=== PATIENT | male | born 1950 | race Caucasian/White ===

== ENCOUNTER → 2017-10-21 | Outpatient (CLI) | payer MEDICARE, BC ==
[2017-10-21 13:26] VITALS: BP 122/84; PULSE 63; RESP 16
--- NOTE | 2017-10-21 13:45 | P.PAINCN ---
History of Present Illness - Reason for Consult Consult date: 10/21/17 - History of Present Illness This is 66 years old male with a history of severe neck pain, with radiation to the upper extremity associated with severe numbness and tingling sensation and headache, the pain started after he was working on his boat, and he lifted his upper extremity to pull the Robe , then he starts having immediate sharp pain, the pain is constant, increases with any neck movement , intensity of the pain 9 /10, preventing him from sleep, associated with severe numbness, and currently associated with severe headache, having started from the base of the skull to the top, currently he is on Ultram 50 mg every 6 hours which is not controlling his pain, also patient complaining of chronic low back pain, and he had multiple lumbar spine surgery, and he continued to have low back pain with radiation to the posterior aspect of his lower extremity, he denies any fever or night sweats, he denies any motor or sensory deficit Past Medical History Past Medical History: Cancer, Hypertension History of Any Multi-Drug Resistant Organisms: None Reported Past Surgical History: Back Surgery, Bladder Surgery, Hernia Repair, Orthopedic Surgery Additional Past Surgical History / Comment(s): 3x laminectomy, spinal stimulator implant and removal, r fx hip, bilateral knee arthroscopy, TURP, Past Anesthesia/Blood Transfusion Reactions: Previous Problems w/ Anesthesia Additional Past Anesthesia/Blood Transfusion Reaction / Comm: "problems coming our of anesthesia- 4-5 days, sometimes a week feeling dizzy, unsteady" Past Psychological History: Anxiety, Depression Smoking Status: Former smoker Past Alcohol Use History: Occasional Past Drug Use History: Marijuana Additional Drug Use History / Comment(s): last marijuana 10/20/17 Medications and Allergies Home Medications Medication Instructions Recorded Confirmed Type ALPRAZolam [Xanax] 1 tab PO BID PRN 10/21/17 10/21/17 History Enalapril/Hydrochlorothiazide 1 tab PO DAILY 10/21/17 10/21/17 History [Vaseretic 5-12.5 mg] Multivitamin [Men's Multi-Vitamin] 1 tab PO DAILY 10/21/17 10/21/17 History Omeprazole 20 mg PO DAILY 10/21/17 10/21/17 History Pravastatin Sodium [Pravachol] 10 mg PO DAILY 10/21/17 10/21/17 History traMADol HCL [Ultram] 50 mg PO BID PRN 10/21/17 10/21/17 History Allergies Allergy/AdvReac Type Severity Reaction Status Date / Time No Known Allergies Allergy Verified 10/21/17 12:32 Physical Exam Vitals: Vital Signs Pulse Resp BP Pulse Ox 10/21/17 12:41 63 16 122/84 98 Intake and Output 10/20/17 10/21/17 10/21/17 22:59 06:59 14:59 Other: Weight 79.832 kg Social history : not smoker , NO ETOH , use marijuana. Review of Systems : 1- Constitutional : no chills , no fever , no night sweats , 2- Ears : no ear discharge , no change in hearing 3-Nose, Mouth ,Throat ; no bleeding gums, no sore throat , no epistaxis , 4-Cardiovascular : Denies chest pain, , no orthopnea , no palpitation 5-Respiratory : Denies cough , no dyspnea , no hemoptysis 6-Gastrointestinal :, no change in bowel habits , no coffee- ground emesis . 7-Genitourinary : No hematuria , no discharge , no incontinence, 8-Musculoskeletal : No gait dysfunction , report low back pain , 9- Neurological : no ataxia , no tremor , no sezure , 10-Psychatric , no suicidal ideation no hallucination 11- Endocrine : no cold intolerence , no polyuria , no polydypsia , 12-Hematologic : no easy bleeding , no easy brusing , 13-Allergic / immunology : no angioedema , no wheezing ,no allergic rhinitis 14-Integumentary : no brttle nails , no change hair / nails , no foot/leg ulcers . Physical Examinations : 1-Constitutional : Cooperative , not in acute distress . 2-HEENT : nech ; supple , no Lymphadenopathy , no Thyromegaly , :eyes , no icterus, no photophobia . ENT : , normal oropharynx , no Thrush 3- Respiratory : Chest clear to auscultations Bilaterally , no wheezing . 4- Cardiovascular : regular rate and rhythem , S1 , S2 , no S3 , no S4. 5- Gastrointestinal: abdomen soft no tenderness , no organomegally . 6- Genitourinary : Defferred . 7-Integumentary : No cellulitis , no ulcers , normal skin turgor , no cyanotic . 8- neurologic : Cranial nerve II to XII intact , no focal neurological deffecit 9-psychatric : alert , oriented X 3 , appropriate affect , intact judgment and insight . 10-Lymphatic : no Lymphadenopathy. 11- musculoskeltal: normal gait Cervical Spine motor stregnth in the deltoid and biceps, normal right side , normal Left side motor stregnth biceps and the wrist extensors normal right side ,normal left side . motor stregnth in the triceps muscle . normal Right side , normal Left side deep tendon reflexes normal at the biceps , normal at Brachioradialis , normal at triceps. positive cervical facet loading test . Positive multiple trigger points in the cervical paravertebral muscles and trapezius muscles and rhomboid muscles Lumber spine moter stegnth lower extremities ,thigh and legs 5/5 Right side , 5/5 Left side deep tendon reflexes : normal Knee Jerk , normal ankle Jerk positive lumber facet Loading Test Range of motion of the lumbar spine decreased strait leg raising test negative bilaterally Fabere test negative bilaterally Results Comments: MRI of the cervical spine= C5 6 C6 7 disc protrusion, and facet hypertrophy Assessment and Plan Plan: Assessment and plan= 1-acute cervical radiculopathy 2-cervical disc herniation. 3-myofascial pain syndrome cervical area. Patient will be good candidate for cervical epidural steroid injections under fluoroscopy guidance, and also does intend patient could benefit from trigger point injections cervical paravertebral muscles, trapezius muscles, and rhomboid muscles Also patient could benefit from muscle relaxant Flexeril 5 mg twice a day, and Mobic 7.5 mg twice a day Time with Patient: Greater than 30 PQRS Measure Charge Sheet Measure #130: Documentation of Current Meds in Medical Chart: Patient's medications documented in chart Measure #226: Tobacco Use: Screen & Cessation Intervention: Pt not a tobacco user Measure #111: Pneumonia Vaccination: Pneumococcal vaccine NOT administered or previously given Measure #47: Advance Care Plan: Advance care planning discussed & documented, pt chose/unable to give Measure #412: Opioid Treatment Agreement: No documentation of signed opioid treatment agreement Measure #408: Opioid Therapy Follow-up Evaluation: Patient had NO f/u eval minimum every 3 months during opioid therapy Measure #317: Preventitive Care & Scrn High Bld Press & F/U: Normal blood pressure, f/u not required Measure #128: Body Mass Index (BMI) Screening & Follow-up: BMI documented within normal parameters Measure #131: Pain Assessment & Follow-up: Pain positive & plan documented, Follow-up scheduled Measure #431: Unhealthy Alcohol Use Preventative Care & Scrn: Patient not identified as an unhealthy alcohol user PQRS Narrative: Smoking Status Former smoker Do You Want the Pneumonia No Vaccine AT THIS TIME? Blood Pressure 122/84 Pain Intensity [Bilateral 5 Upper Neck] Scale Used Numeric (1 - 10) Hx Alcohol Use (MH) Yes: 2 q day Home Medications: Ambulatory Orders ALPRAZolam [Xanax] 1 tab PO BID PRN 10/21/17 Enalapril/Hydrochlorothiazide [Vaseretic 5-12.5 mg] 1 tab PO DAILY 10/21/17 Multivitamin [Men's Multi-Vitamin] 1 tab PO DAILY 10/21/17 Omeprazole 20 mg PO DAILY 10/21/17 Pravastatin Sodium [Pravachol] 10 mg PO DAILY 10/21/17 traMADol HCL [Ultram] 50 mg PO BID PRN 10/21/17
== END | disposition home or self-care (01) ==
LOC: PNWHC3 11:53
PROVIDERS: ATTEND Specialist
DX: M50.10 Cervical disc disorder with radiculopathy, unspecified cervical region (principal); M79.1 Myalgia; I10 Essential (primary) hypertension; F41.9 Anxiety disorder, unspecified; F32.9 Major depressive disorder, single episode, unspecified; Z87.891 Personal history of nicotine dependence; Z79.899 Other long term (current) drug therapy; Z98.890 Other specified postprocedural states
CPT/HCPCS: 99201

== ENCOUNTER 2017-10-25 06:51 | Day surgery (SDC) | payer MEDICARE, BC ==
[2017-10-21 16:12] VITALS: BMI 23.8
[~2017-10-25 06:51] MED LIST: LACTATED RINGERS 1,000 ML IV SCH
[2017-10-25 07:12] VITALS: RESP 16; TEMP 97.6
[2017-10-25] MEDS ORDERED: LIDOCAINE 1% 20 ML VIAL (10MG/ML) FOR IV START INTRADERMA ONE (07:13)
--- NOTE | 2017-10-25 07:44 | P.PCN ---
Date of Procedure: 10/25/17 Procedure(s) Performed: . PROCEDURE 1. Cervical epidural steroid injection under fluoroscopic guidance, C7-T1 2. Cervical epidurogram. 3. Trigger point injections cervical paravertebral muscles total of 4 trigger points injected,(2 on the right side trapezius and rhomboid muscles ,and 2 on the left side trapezius and rhomboid muscles ) PREOPERATIVE DIAGNOSIS: 1- Cervical Herniated Disc Diseases 2- Cervical radiculopathy., 3-myofascial pain syndrome and cervical area POSTOPERATIVE DIAGNOSIS: : Same as preoperative diagnoses ANESTHESIA: Local anesthesia with 1% lidocaine 3 ml , and IV sedation with Versed 2 mg . EBL 0 PROCEDURE INDICATION: The patient with neck pain and radiculitis unresponsive to conservative treatment consents for procedure. PROCEDURE DESCRIPTION / TECHNIQUE: The patient was seen and identified in the preoperative area. Risks, benefits, complications, including but not limited to infections ,bleeding , allergic reactions to the medications ,and not complete pain releife, and alternatives were discussed with the patient, the patient agreed to proceed with the procedure and signed the consent. Patient was taken to the OR and time out was completed. The patient was placed in the prone position on the procedure table. A pillow was placed under the patients chest to increase the cervical interlaminar space. The cervical area was prepped and draped in the usual sterile fashion. Vital signs were closely monitored during the procedure. Conscious sedation was used during the procedure to decrease patients anxiety. Using anterior-posterior fluoroscopy, the C7-T1 interlaminar space was identified and the skin over this site was marked and then infiltrated with 1% lidocaine subcutaneously. Subsequently, a 20-gauge 3-1/2-inch Tuohy epidural needle was inserted and advanced toward the epidural space by means of the `` hanging-drop technique and guided by AP and lateral fluoroscopy. The correct needle position in the epidural space was verified with the injection of 2 mL of the water soluble contrast dye Isovue-200 and observing an excellent epidurogram with the epidural spread of the dye, after negative aspiration for blood and CSF and in the absence of paresthesias. Again after negative aspiration, mixture containing 20 mg Dexamethasone and 2 ml of preservative- free normal saline injected and a washout of epidurogram was seen. Needle was withdrawn intact. then the trigger points injection done , using 25-gauge needle, each of limited appose the small in the preoperative holding area , total of 4 trigger points identified, the preoperative holding area on the right side trapezius and rhomboid muscle and 2 on the left side trapezius and rhomboid muscle each one of them injected with ropivacaine 0.5%, using 25-gauge needle 2 ml injected at each trigger point, injections and after negative aspiration under was no paresthesia during the injection Complications= none. Disposition= patient was placed in supine position and transferred to the recovery room area in stable condition and there was no evidence of upper or lower extremity motor or sensory deficit after the procedure patient was discharged from recovery room after discharge criteria met and home discharge instructions was given by the staff and patient will follow with the pain clinic in 2-4 weeks
[2017-10-25] MEDS ORDERED: IV FLUID CONTINUATION 1,000 ML IV ONE (07:52)
--- NOTE | 2017-10-25 07:56 | FL ---
EXAMINATION TYPE: FL guided pain mgmt statistic DATE OF EXAM: 10/25/2017 HISTORY: Pain Cervical Epidural. 2 sec fluoro. 1 image scanned.
[2017-10-25 07:58] VITALS: PULSE 102
[2017-10-25 08:10] VITALS: BP 132/92
== END 2017-10-25 08:28 | disposition home or self-care (01) ==
LOC: ORPAIN 06:51
PROVIDERS: ATTEND Anesthesiology
DX: M50.10 Cervical disc disorder with radiculopathy, unspecified cervical region (principal); M79.1 Myalgia; Z79.891 Long term (current) use of opiate analgesic; I10 Essential (primary) hypertension; Z87.891 Personal history of nicotine dependence; F41.9 Anxiety disorder, unspecified; F32.9 Major depressive disorder, single episode, unspecified; Z79.899 Other long term (current) drug therapy
CPT/HCPCS: 20553; 62321; J2250; J1100; Q9966; 20552; 99152

== ENCOUNTER 2017-11-08 09:18 | Day surgery (SDC) | payer MEDICARE, BC ==
[2017-11-02 14:52] VITALS: BMI 24.4
[2017-11-08 10:48] VITALS: TEMP 98.5
[2017-11-08] MEDS ORDERED: LIDOCAINE 1% 20 ML VIAL (10MG/ML) FOR IV START INTRADERMA ONE (11:05)
--- NOTE | 2017-11-08 11:36 | P.PCN ---
Date of Procedure: 11/08/17 Surgeon: Tanya Donaldson Pathology: none sent Condition: stable Disposition: PACU Description of Procedure: PROCEDURE 1. Cervical epidural steroid injection under fluoroscopic guidance, C7-T1 right paramedian approach. 2. Cervical epidurogram. : PREOPERATIVE DIAGNOSIS: Cervical radiculopathy, cervical spondylosis without myelopathy POSTOPERATIVE DIAGNOSIS: : Same as above ANESTHESIA: Local anesthesia with 1% lidocaine and IV moderate conscious sedation with Versed and Fentanyl . EBL negligible PROCEDURE INDICATION: The patient with neck pain and radiculopathy unresponsive to conservative treatment consents for procedure. PROCEDURE DESCRIPTION / TECHNIQUE: The patient was seen and identified in the preoperative area. Risks, benefits, complications, including but not limited to infections ,bleeding , allergic reactions to the medications ,and not complete pain relief, and alternatives were discussed with the patient, the patient agreed to proceed with the procedure and signed the consent. Patient was taken to the OR and time out was completed. The patient was placed in the prone position on the procedure table. A pillow was placed under the patients chest to increase the flexion of the cervical spine . The cervical area was prepped and draped in the usual sterile fashion. Vital signs were closely monitored during the procedure. Conscious sedation was used during the procedure to decrease patients anxiety. Using anterior-posterior fluoroscopy, the C7-T1 interlaminar space was identified and the skin over this site was marked and then infiltrated with 1% lidocaine subcutaneously. Subsequently, a 20-gauge 3-1/2-inch Tuohy epidural needle was inserted and advanced toward the epidural space by means of loss of resistance to air technique and guided by AP and lateral fluoroscopy. The needle tip contacted the lamina of T1 vertebra first, then it was walked off the bone and into the epidural space using the loss of to air and fluoroscopic guidance to identify the epidural space. The correct needle position in the epidural space was verified with the injection of 1 mL of the water soluble contrast dye Isovue and observing an excellent epidurogram with the epidural spread of the dye, after negative aspiration for blood and CSF and in the absence of paresthesias. Again after negative aspiration, a 5 ml mixture containing 10 mg of Decadron and 4 ml of preservative free Normal Saline solution was injected and a washout of epidurogram was seen. Needle was withdrawn intact, skin was cleansed, and bandages were applied.
[2017-11-08 11:43] VITALS: RESP 16
--- NOTE | 2017-11-08 11:51 | FL ---
EXAMINATION TYPE: FL guided pain mgmt statistic DATE OF EXAM: 11/08/2017 HISTORY: Pain 6 seconds of fluoro time. 1 image scanned. Mendoza.
[2017-11-08] MEDS ORDERED: IV FLUID CONTINUATION 1,000 ML IV ONE (12:04)
[2017-11-08 12:08] VITALS: BP 156/91; PULSE 105
== END 2017-11-08 12:10 | disposition home or self-care (01) ==
LOC: ORPAIN 09:18
PROVIDERS: ATTEND Anesthesiology
DX: M47.22 Other spondylosis with radiculopathy, cervical region (principal); M50.122 Cervical disc disorder at C5-C6 level with radiculopathy; M79.1 Myalgia; I10 Essential (primary) hypertension; F41.9 Anxiety disorder, unspecified; F32.9 Major depressive disorder, single episode, unspecified; M54.5 Low back pain; G89.29 Other chronic pain; Z79.899 Other long term (current) drug therapy; Z85.9 Personal history of malignant neoplasm, unspecified; Z87.891 Personal history of nicotine dependence
CPT/HCPCS: 62321; J1100; J3010; Q9966; 99152

== ENCOUNTER → 2017-11-29 | Outpatient (CLI) | payer MEDICARE, BC ==
[2017-11-29 12:26] VITALS: BP 121/92; PULSE 111; RESP 16
--- NOTE | 2017-11-29 13:21 | P.PAINPG ---
Subjective Progress Note Date: 11/29/17 This is a follow-up visit for this 66 is on male with history of severe neck pain with radiation to the upper extremity associated with numbness and tingling sensation, is diagnosed with cervical radiculopathy cervical disc herniation and myofascial pain syndrome cervical area, we have done cervical epidural steroid injections 2, and patient reports he has some benefit from it but he continued to have some numbness and tingling sensation in the upper extremity he denies any motor or sensory deficit, intensity of the pain is still feeling with his quality of life and ability to do activities of daily living, he denies any fever or night sweats. Denies any change in the bowel movements or urination. Objective - Vital Signs Vital signs: Vital Signs Temp Pulse 111 H 11/29/17 12:08 Resp 16 11/29/17 12:08 BP 121/92 11/29/17 12:08 Pulse Ox 94 L 11/29/17 12:08 Intake & Output 11/28/17 11/29/17 11/29/17 18:59 06:59 18:59 Weight 80.739 kg - Exam Physical Examinations : 1-Constitutiona : Cooperative , not in acute distress . 2-HEENT : nech ; supple , no Lymphadenopathy , normal thyroid size . eyes : no ptosis , no icterus, no photophobia . ENT : normal of hearing , normal oropharynx , no Thrush . 3- Respiratory : Chest clear to auscultations Bilaterally , no wheezing , no Rhonchi . 4- Cardiovascular : regular rate and rhythem , S1 , S2 , no S3 , no S4. 5- Gastrointestinal : abdomen soft no tenderness , bowel sounds , no organomegally . 6- Genitourinary : Defferred . 7- neurologic : Cranial nerve II to XII intact , no focal neurological deffecit . 8-psychatric : alert , oriented X 3 , appropriate affect , intact judgment and insight . 9-Lymphatic : no Lymphadenopathy . 10- musculoskeltal : Cervical Spine motor stregnth in the deltoid and biceps, normal right side , normal Left side motor stregnth biceps and the wrist extensors normal right side ,normal left side . motor stregnth in the triceps muscle . normal Right side , normal Left side deep tendon reflexes normal at the biceps , normal at Brachioradialis , normal at triceps. multiples trigger points in the cervical paravertebral muscles and rhomboid and trapezius muscles Lumber spine moter stegnth lower extremities , thigh and legs 5/5 Right side , 5/5 Left side deep tendon reflexes : normal Knee Jerk , normal ankle Jerk positive lumber facet Loading Test Range of motion of the lumbar spine Flexion 30 degrees, extension 10 degrees strait leg raising test , positive at 30 degree on the left and its negative on the right side Fabere test positive RT and positive LT . Assessment and Plan Plan: Assessment and plan= cervical radiculopathy, cervical disc herniation, myofascial pain syndrome and cervical area. He will be, scheduled to have third cervical epidural steroid injections under fluoroscopy guidance at C7-T1 At the same time we will do trigger point injection cervical area Recommend start patient on Lyrica 25 mg 3 times a day, continue Flexeril 10 mg 3 times a day, continue Mobic 7.5 mg daily Lumbar radiculopathy , lumbar spondylosis with lumbar facet arthropathy , FBSS lumbar area he had MRI of the lumbar spine ordered to be done next week and next visit we'll evaluate his need to do an interventional pain procedure in the lumbar area Time with Patient: Less than 30 PQRS Measure Charge Sheet Measure #130: Documentation of Current Meds in Medical Chart: Patient's medications documented in chart Measure #226: Tobacco Use: Screen & Cessation Intervention: Pt screened for tobacco use AND intervention given Measure #111: Pneumonia Vaccination: Pneumococcal vaccine NOT administered or previously given Measure #47: Advance Care Plan: Advance care planning discussed & documented, pt chose/unable to give Measure #412: Opioid Treatment Agreement: No documentation of signed opioid treatment agreement Measure #408: Opioid Therapy Follow-up Evaluation: Patient had NO f/u eval minimum every 3 months during opioid therapy Measure #317: Preventitive Care & Scrn High Bld Press & F/U: Normal blood pressure, f/u not required Measure #128: Body Mass Index (BMI) Screening & Follow-up: BMI documented within normal parameters Measure #131: Pain Assessment & Follow-up: Pain positive & plan documented, Follow-up scheduled Measure #431: Unhealthy Alcohol Use Preventative Care & Scrn: Patient not identified as an unhealthy alcohol user PQRS Narrative: Smoking Status Former smoker Do You Want the Pneumonia No Vaccine AT THIS TIME? Blood Pressure 121/92 Pain Intensity [Bilateral 9 Posterior Neck] Scale Used Numeric (1 - 10) Hx Alcohol Use (MH) Yes: 2 q day Home Medications: Ambulatory Orders ALPRAZolam [Xanax] 1 tab PO BID PRN 10/21/17 Cyclobenzaprine [Flexeril] 10 mg PO TID PRN 10/21/17 Enalapril/Hydrochlorothiazide [Vaseretic 5-12.5 mg] 1 tab PO DAILY 10/21/17 Multivitamin [Men's Multi-Vitamin] 1 tab PO DAILY 10/21/17 Omeprazole 20 mg PO DAILY 10/21/17 Pravastatin Sodium [Pravachol] 10 mg PO DAILY 10/21/17 traMADol HCL [Ultram] 50 mg PO BID PRN 10/21/17 Controlled Substance Measures - Controlled Substance Measures Is patient prescribed a controlled substance at discharge?: No When asked, does pt state using other controlled substances?: No If prescribed controlled substance>3 days was MAPS reviewed?: No If Rx opioid, was Start Talking consent form obtained?: No If opioid is for acute pain is fill amount 7 days or less?: No Was information provided regarding opioid addiction?: No
== END ==
LOC: PNWHC3 11:35
PROVIDERS: ATTEND Specialist
DX: M50.10 Cervical disc disorder with radiculopathy, unspecified cervical region (principal); M79.18 Myalgia, other site
CPT/HCPCS: 99211

== ENCOUNTER 2017-12-07 08:49 | Day surgery (SDC) | payer MEDICARE, BC ==
[2017-12-03 10:44] VITALS: BMI 24.4
[2017-12-07] MEDS ORDERED: LIDOCAINE 1% 20 ML VIAL (10MG/ML) FOR IV START INTRADERMA ONE (09:11)
[2017-12-07 09:20] VITALS: RESP 16; TEMP 97.4
--- NOTE | 2017-12-07 10:26 | P.PCN ---
Date of Procedure: 12/07/17 Procedure(s) Performed: PROCEDURE 1. Cervical epidural steroid injection under fluoroscopic guidance, C7-T1 2. Cervical epidurogram. 3. Trigger point injections cervical paravertebral muscles total of 5 trigger points injected,(3 on the right side trapezius and rhomboid muscles ,and 2 on the left side trapezius and rhomboid muscles ) PREOPERATIVE DIAGNOSIS: 1- Cervical Herniated Disc Diseases 2- Cervical radiculopathy., 3-myofascial pain syndrome and cervical area POSTOPERATIVE DIAGNOSIS: : Same as preoperative diagnoses ANESTHESIA: Local anesthesia with 1% lidocaine 3 ml , and IV sedation with Versed 1 mg ,and Fentanyle 50 mcg . EBL 0 PROCEDURE INDICATION: The patient with neck pain and radiculitis unresponsive to conservative treatment consents for procedure. PROCEDURE DESCRIPTION / TECHNIQUE: The patient was seen and identified in the preoperative area. Risks, benefits, complications, including but not limited to infections ,bleeding , allergic reactions to the medications ,and not complete pain releife, and alternatives were discussed with the patient, the patient agreed to proceed with the procedure and signed the consent. Patient was taken to the OR and time out was completed. The patient was placed in the prone position on the procedure table. A pillow was placed under the patients chest to increase the cervical interlaminar space. The cervical area was prepped and draped in the usual sterile fashion. Vital signs were closely monitored during the procedure. Conscious sedation was used during the procedure to decrease patients anxiety. Using anterior-posterior fluoroscopy, the C7-T1 interlaminar space was identified and the skin over this site was marked and then infiltrated with 1% lidocaine subcutaneously. Subsequently, a 20-gauge 3-1/2-inch Tuohy epidural needle was inserted and advanced toward the epidural space by means of the `` hanging-drop technique and guided by AP and lateral fluoroscopy. The correct needle position in the epidural space was verified with the injection of 2 mL of the water soluble contrast dye Isovue-200 and observing an excellent epidurogram with the epidural spread of the dye, after negative aspiration for blood and CSF and in the absence of paresthesias. Again after negative aspiration, mixture containing 20 mg Dexamethasone and 2 ml of preservative- free normal saline injected and a washout of epidurogram was seen. Needle was withdrawn intact. then the trigger points injection done , using 25-gauge needle, each of limited appose the small in the preoperative holding area , total of 5 trigger points identified, the preoperative holding area , 3 on the right side trapezius and rhomboid muscle, and 2 on the left side trapezius and rhomboid muscle each one of them injected with ropivacaine 0.5%, using 25-gauge needle 2 ml injected at each trigger point, injections and after negative aspiration under was no paresthesia during the injection Complications= none. Disposition= patient was placed in supine position and transferred to the recovery room area in stable condition and there was no evidence of upper or lower extremity motor or sensory deficit after the procedure patient was discharged from recovery room after discharge criteria met and home discharge instructions was given by the staff and patient will follow with the pain clinic in 2-4 weeks
[2017-12-07] MEDS ORDERED: IV FLUID CONTINUATION 550 ML IV ONE (10:30)
--- NOTE | 2017-12-07 10:55 | FL ---
EXAMINATION TYPE: FL guided pain mgmt statistic DATE OF EXAM: 12/07/2017 CLINICAL HISTORY: Neck pain. TECHNIQUE: Fluoroscopy. COMPARISON: None. FINDINGS: Fluoroscopic guidance was provided during pain relief procedure performed by Dr. Bhatt . A total of 2 seconds of fluoroscopic time was utilized during the procedure and single spot fluoro scopic image is acquired. Single image acquired shows needle localization at C7 level with contrast injection. IMPRESSION: As Above.
[2017-12-07 11:04] VITALS: BP 135/92; PULSE 110
== END 2017-12-07 11:08 | disposition home or self-care (01) ==
LOC: ORPAIN 08:49
PROVIDERS: ATTEND Specialist
DX: M50.10 Cervical disc disorder with radiculopathy, unspecified cervical region (principal); M79.18 Myalgia, other site; I10 Essential (primary) hypertension
CPT/HCPCS: 20553; 62321; J2250; J1100; J3010; Q9966; 99152

== ENCOUNTER → 2019-08-17 | Outpatient (CLI) | payer MEDICARE, BC ==
[2019-08-17 12:57] VITALS: BP 98/70; PULSE 66; RESP 16; TEMP 98.4
--- NOTE | 2019-08-18 12:16 | P.PAINPG ---
Subjective Progress Note Date: 08/17/19 This is a follow-up visit for this 68-year-old male with history of severe neck pain with radiation to the upper extremity associated with numbness and tingling sensation, is diagnosed with cervical radiculopathy cervical disc herniation and myofascial pain syndrome cervical area, we have done cervical epidural steroid injections and trigger point injections, last done in 11/2017. Today, he presents with low back pain which has been present for over 20 years, located in bilateral lower back, left greater than right, radiating to bilateral lower extremities, worse on the right side. Pain in the right lower extremity is in the posterior thigh, lateral aspect of calf and medial 3 toes. In the left lower extremity is in the entire leg below the knee. He does have associated numbness and tingling in bilateral lower extremities and subjective weakness on right side. He does endorse a few episodes of bowel incontinence, where he has been unable to get to the toilet in time. He has had chronic pain for a long time, however in October 2018, he was brushing his teeth and had a coughing spell and subsequently he had severe back pain. He had another similar episode approximately 2 weeks ago where he was vomiting due to morphine and his back pain worsens. Of note, he has been evaluated in [place] for his low back pain and underwent some injections, he also had a spinal cord stimulator in place, however this was removed in 2007 as it did not work. He has undergone lumbar spinal surgery as well, he was evaluated by a spine surgeon in [place] who recommended decompression and fusion, however he did not want to proceed with this. Review of systems is negative for chest pain, shortness of breath, changes in vision, changes in hearing, new onset weakness, abdominal pain, diarrhea, extreme fatigue, malaise, fever, skin changes, homicidal ideation, or bladder incontinence. He has had suicidal thoughts, does not have an active plan. Objective Physical exam: Vitals: Reviewed in EMR GENERAL: Well appearing, in no acute distress PSYCH: Tearful, crying during our visit SKIN: Skin color, texture, turgor normal, no rashes or lesions HEENT: Normocephalic, atraumatic. EOM intact CV: No pedal edema RESP: Respirations are unlabored, no audible wheezing GI: Abdomen non-distended MUSCULOSKELETAL: Bilateral lower extremity strength is normal and symmetric. No atrophy or tone abnormalities are noted. Lumbar spine: Straight leg raising in the sitting position is positive bilaterally for radicular pain. Tenderness to palpation over the lumbar spine and paraspinous muscles bilaterally. Positive for pain with facet loading and back extension/rotation. Limited lumbar flexion and extension. Midline Scar from prior lumbar surgery visible, well healed. Buttocks: No pain to palpation over the PSIS, sacroiliac joint maneuvers are n egative for pain. Extremities: Peripheral joint ROM is full and pain free without obvious instability or laxity in all four extremities. No edema or skin discolorations noted. NEUR: Bilateral lower extremity coordination and muscle stretch reflexes are physiologic and symmetric. Negative clonus bilaterally. Reduced sensation to light touch noted in lateral aspect of right leg Imaging: MRI lumbar spine done on 05/30/2019 at [facility] shows moderate disc space narrowing with spondylolisthesis at all levels of the lumbar spine. Grade 1 subluxation of L5 on S1 and L2 on L3 and L3 on L4. Multilevel disc bulging. At L12 moderate right neuroforaminal narrowing, mild left neuroforaminal narrowing. At L2-3 disc bulge with moderate bilateral neuroforaminal narrowing. At L3-4 large left paracentral disc bulge with severe left neuroforaminal narrowing and moderate right neuroforaminal narrowing. At L4-5 posterior central disc herniation with severe left neuroforaminal narrowing and moderate right neuroforaminal narrowing stop L5-S1 broad-based disc bulge with mild bilateral neuroforaminal narrowing. CT lumbar spine done at [facility] on 10/26/2018 shows multilevel spondylolisthesis and multilevel degenerative change with new disc herniation at L4-5left paracentral Assessment and Plan Plan: Assessment and plan= Lumbar radiculopathy , lumbar spondylosis with lumbar facet arthropathy , FBSS lumbar area, lumbar degenerative disc disease We will schedule him for a caudal epidural steroid injections lysis of adhesions at earliest available I instructed him to follow his primary care physician regarding discussion, he has described Zoloft, and is not taking this medication. I instructed him to start taking it. cervical radiculopathy, cervical disc herniation, myofascial pain syndrome and cervical area: In the past he has undergone cervical epidural steroid injections and trigger point injection cervical area Follow-up: For above-mentioned procedure at earliest available Objective - Vital Signs Vital signs: Intake & Output 06/17/20 06/18/20 06/18/20 18:59 06:59 18:59 Weight 77.111 kg PQRS Measure Charge Sheet Measure #130: Documentation of Current Meds in Medical Chart: Patient's medications documented in chart Measure #226: Tobacco Use: Screen & Cessation Intervention: Pt not a tobacco u ser Measure #111: Pneumonia Vaccination: Pneumococcal vaccine NOT administered or previously given Measure #47: Advance Care Plan: Advance care planning discussed & documented, pt chose/unable to give Measure #412: Opioid Treatment Agreement: No documentation of signed opioid treatment agreement Measure #408: Opioid Therapy Follow-up Evaluation: Patient had NO f/u eval minimum every 3 months during opioid therapy Measure #317: Preventitive Care & Scrn High Bld Press & F/U: Normal blood pressure, f/u not required Measure #128: Body Mass Index (BMI) Screening & Follow-up: BMI documented within normal parameters Measure #131: Pain Assessment & Follow-up: Pain positive & plan documented, Follow-up scheduled Measure #431: Unhealthy Alcohol Use Preventative Care & Scrn: Patient not identified as an unhealthy alcohol user PQRS Narrative: Smoking Status Former smoker Pain Intensity [Left Lower 6 Back] Hx Alcohol Use (MH) Yes Home Medications: Ambulatory Orders ALPRAZolam [Xanax] 0.5 tab PO BID PRN 10/21/17 Enalapril/Hydrochlorothiazide [Vaseretic 5-12.5 mg] 1 tab PO DAILY 10/21/17 Omeprazole 20 mg PO DAILY 10/21/17 HYDROcodone/APAP 7.5-325MG [[place] 7.5-325] 1 tab PO Q4-6H PRN 08/17/19 Sertraline [Zoloft] 100 mg PO DAILY 08/17/19 Controlled Substance Measures - Controlled Substance Measures Is patient prescribed a controlled substance at discharge?: No
== END | disposition home or self-care (01) ==
LOC: PNWHC3 12:26
PROVIDERS: ATTEND Anesthesiology
DX: M51.16 Intervertebral disc disorders with radiculopathy, lumbar region (principal); M47.26 Other spondylosis with radiculopathy, lumbar region; M46.96 Unspecified inflammatory spondylopathy, lumbar region; M50.10 Cervical disc disorder with radiculopathy, unspecified cervical region; M79.18 Myalgia, other site; Z87.891 Personal history of nicotine dependence; Z79.899 Other long term (current) drug therapy
CPT/HCPCS: 99211

== ENCOUNTER → 2019-08-29 | Day surgery (SDC) | payer MEDICARE, BC ==
[2019-08-28 10:39] VITALS: BMI 23.7
[~2019-08-29] MED LIST changes: +IOPAMIDOL M200 10 ML VIAL ONE; +LACTATED RINGERS 1,000 ML IV ONE; +LIDOCAINE 1% (10MG/ML) FOR IV START INTRADERMA ONE; +MIDAZOLAM 2 MG/2 ML VIAL ONE; +fentaNYL (PF) 50 MCG/ML 2 ML AMP ONE; +methylPREDNISolone ACETATE 40 MG/ML 1 ML VIAL ONE
[2019-08-29 11:11] VITALS: RESP 18; TEMP 97.8
--- NOTE | 2019-08-29 12:22 | P.PCN ---
Date of Procedure: 08/29/19 Procedure(s) Performed: Procedure= caudal epidural steroid injection with lysis of epidural adhesions under fluoroscopy guidance. Preoperative diagnosis=1-failed back surgery syndrome lumbar area. 2 lumbar degenerative disc disease 3-lumbar radiculopathy Postoperative diagnosis= same Fluoroscopy was used for the procedure and fluoroscopic images were saved to the patient's chart Anesthesia= IV sedation with Versed and fentanyl , and local infiltration with lidocaine 1% 3 mL for skin and subcutaneous tissue infiltrations. Sedation time 13 minutes Description of the procedure= procedure risk and benefits discussed with the patient, including but not limited to risk of infection and bleeding and ALLERGIC reaction to the medication and no complete pain relief, paralysis discussed with the patient and the patient agreed with proceeding. The patient was taken to the operating room, placed in prone position, standard monitors applied, then after induction of anesthesia the lumbar and the caudal Area prepped with chlorhexidine , then under fluoroscopy guidance, local infiltration of the skin and subcutaneous tissue at the caudal hiatus area, then a 17-gauge Touhy needle advanced slowly under fluoroscopy and passed through the cauda hiatus and advanced to the epidural space upto the S3 level. Aspiration revealed no heme, no paresthesia, no cerebrospinal fluid, then Isovue 200 2mls was injected under live fluoroscopy that showed good spread in the epidural space, no intrathecal spread, then a 22 wilfrido Racz catheter was advanced slowly through the needle up to the L4-5 level and I was able to break the scar tissue by advancing and withdrawing the catheter multiple times. Once lysis of adhesion was completed, a mixture of lidocaine 1% 1 mL +5 mL of preservative-free normal saline +80 mg of depomedrol was mixed together , and injected epidurally. Patient tolerated the procedure well without any complication and will follow up with up in the pain clinic in 4 weeks.
[2019-08-29 12:27] VITALS: BP 155/95; PULSE 75
--- NOTE | 2019-08-29 12:50 | FL ---
Fluoroscopy History: Needle placement 9 seconds of fluoroscopic time and 2 films are submitted for Needle placement.
== END ==
LOC: ORPAIN 10:42
PROVIDERS: ATTEND Anesthesiology
DX: M96.1 Postlaminectomy syndrome, not elsewhere classified (principal); M51.16 Intervertebral disc disorders with radiculopathy, lumbar region; Z88.5 Allergy status to narcotic agent
CPT/HCPCS: 62264; J2250; J1030; J3010; Q9966; C1894; 99152

== ENCOUNTER 2019-09-26 08:00 | Day surgery (SDC) | payer MEDICARE, BC ==
[2019-09-22 13:45] VITALS: BMI 23.8
[~2019-09-26 08:00] MED LIST changes: -IOPAMIDOL M200 10 ML VIAL ONE; -LACTATED RINGERS 1,000 ML IV ONE; -LIDOCAINE 1% (10MG/ML) FOR IV START INTRADERMA ONE; -MIDAZOLAM 2 MG/2 ML VIAL ONE; -fentaNYL (PF) 50 MCG/ML 2 ML AMP ONE; -methylPREDNISolone ACETATE 40 MG/ML 1 ML VIAL ONE
[2019-09-26 08:17] VITALS: TEMP 97.7
[2019-09-26] MEDS ORDERED: MIDAZOLAM 2 MG/2 ML VIAL ONE (08:34)
[2019-09-26] MEDS ORDERED: methylPREDNISolone ACETATE 80 MG/ML 1 ML VIAL ONE (08:34)
[2019-09-26] MEDS ORDERED: IOPAMIDOL M200 10 ML VIAL ONE (08:34)
[2019-09-26] MEDS ORDERED: fentaNYL (PF) 50 MCG/ML 2 ML AMP ONE (08:34)
[2019-09-26 09:14] VITALS: RESP 16
[2019-09-26 09:39] VITALS: BP 146/92; PULSE 88
[2019-09-26] MEDS ORDERED: IV FLUID CONTINUATION 1,000 ML IV ONE (09:39)
--- NOTE | 2019-09-26 09:49 | P.PCN ---
Date of Procedure: 09/26/19 Procedure(s) Performed: Procedure= caudal epidural steroid injection with lysis of epidural adhesions under fluoroscopy guidance. Preoperative diagnosis=1-failed back surgery syndrome lumbar area. 2 lumbar degenerative disc disease 3-lumbar radiculopathy Postoperative diagnosis= same Fluoroscopy was used for the procedure and fluoroscopic images were saved to the patient's chart Anesthesia= IV sedation with Versed and fentanyl , and local infiltration with lidocaine 1% 3 mL for skin and subcutaneous tissue infiltrations. Sedation time 25 minutes Description of the procedure= procedure risk and benefits discussed with the patient, including but not limited to risk of infection and bleeding and ALLERGIC reaction to the medication and no complete pain relief, paralysis discussed with the patient and the patient agreed with proceeding. The patient was taken to the operating room, placed in prone position, standard monitors applied, then after induction of anesthesia the lumbar and the caudal Area prepped with chlorhexidine , then under fluoroscopy guidance, local infiltration of the skin and subcutaneous tissue at the caudal hiatus area, then a 17-gauge Touhy needle advanced slowly under fluoroscopy and passed through the cauda hiatus and advanced to the epidural space upto the S3 level. Aspiration revealed no heme, no paresthesia, no cerebrospinal fluid, then Isovue 200 2mls was injected under live fluoroscopy that showed good spread in the epidural space, no intrathecal spread, then a 22 wilfrido Racz catheter was advanced slowly through the needle up to the L5 level and I was able to break the scar tissue by advancing and withdrawing the catheter multiple times. Once lysis of adhesion was completed, a mixture of lidocaine 1% 1 mL +5 mL of preservative-free normal saline +80 mg of depomedrol was mixed together , and injected epidurally. Patient tolerated the procedure well without any complication and will follow up with up in the pain clinic in 4 weeks. Initially, I had difficulty entering the caudal epidural space with the 17-gauge Tuouy needle. I was able to enter this space with a 22-gauge Quincke needle without difficulty. I then advanced advanced the Tuouy needle in its place without difficulty.
--- NOTE | 2019-09-26 09:58 | FL ---
Fluoroscopy History: Caudal epidural Caudal epidural, [address] Grant
== END 2019-09-26 09:45 | disposition home or self-care (01) ==
LOC: ORPAIN 08:00
PROVIDERS: ATTEND Anesthesiology
DX: M51.16 Intervertebral disc disorders with radiculopathy, lumbar region (principal); M96.1 Postlaminectomy syndrome, not elsewhere classified; N50.812 Left testicular pain
CPT/HCPCS: 62264; C1894; 99152; 99153

== ENCOUNTER → 2019-10-25 | Outpatient (CLI) | payer MEDICARE, BC ==
[2019-10-25 09:59] VITALS: BP 170/100; PULSE 100; RESP 18
--- NOTE | 2019-10-25 15:09 | P.PAINPG ---
Subjective Progress Note Date: 10/25/19 This is a follow-up visit for this 68-year-old male with history of severe neck pain with radiation to the upper extremity associated with numbness and tingling sensation, is diagnosed with cervical radiculopathy cervical disc herniation and myofascial pain syndrome cervical area, also patient complaining of severe low back pain, and he is the Diagnosed with failed back surgery syndrome and lumbar area , recently we have done a caudal epidural steroid injection with lysis of epidural adhesions , he reported that he had some benefit from the procedure but he continued to have, severe low back pain with radiation to the lower extremity, is able to ambulate on his own. He reported that the pain is a ssociated numbness and tingling in bilateral lower extremities and subjective weakness on right side. Of note, he has been evaluated in [place] for his low back pain and underwent some injections, he also had a spinal cord stimulator in place, however this was removed in 2007 as it did not work. He has undergone lumbar spinal surgery as well, he was evaluated by a spine surgeon in [place] who recommended decompression and fusion, however he did not want to proceed with this. Review of systems is negative for chest pain, shortness of breath, changes in vision, changes in hearing, new onset weakness, abdominal pain, diarrhea, extreme fatigue, malaise, fever, skin changes, homicidal ideation, or bladder incontinence. He has had suicidal thoughts, does not have an active plan Objective - Vital Signs Vital signs: Vital Signs Temp Pulse 100 10/25/19 09:55 Resp 18 10/25/19 09:55 BP 170/100 10/25/19 09:55 Pulse Ox 96 10/25/19 09:55 - Exam Physical Examinations : -Constitutiona : Cooperative , not in acute distress . -HEENT : nech : supple , no Lymphadenopathy , normal thyroid size . : eyes : no ptosis , no icterus, no photophobia . - neurologic : Cranial nerve II to XII intact , no focal neurological deffecit . -psychatric : alert , oriented X 3 , appropriate affect , intact judgment and insight . -Lymphatic : no Lymphadenopathy . - musculoskeltal : Cervical Spine motor stregnth in the deltoid and biceps, normal right side , normal Left side motor stregnth biceps and the wrist extensors normal right side ,normal left side . motor stregnth in the triceps muscle . normal Right side , normal Left side deep tendon reflexes normal at the biceps , normal at Brachioradialis , normal at triceps. cervical facet loading test= Positive Bilaterally Spurling test= positive bilaterally. Neck distraction test= positive bilaterally. Catrachita sign= positive bilaterally. Lumber spine moter stegnth lower extremities ,thigh and legs 5/5 Right side , 5/5 Left side deep tendon reflexes : normal Knee Jerk , normal ankle Jerk lumber facet Loading Test =positive Right , positive Left Range of motion of the lumbar spine Flexion 30 degrees, extension 10 degrees strait leg raising test = positive at 45 degree Fabere test= positive Right , and positive LT . Decreased sensation in the lateral aspect of the right lower extremities Assessment and Plan Plan: Lumbar radiculopathy , lumbar spondylosis with lumbar facet arthropathy , failed back surgery lumbar area, lumbar degenerative disc disease We will schedule him for repeat caudal epidural steroid injections lysis of adhesions at earliest available cervical radiculopathy, cervical disc herniation, myofascial pain syndrome and cervical area: In the past he has undergone cervical epidural steroid injections and trigger point injection cervical area Time with Patient: Less than 30 PQRS Measure Charge Sheet Measure #130: Documentation of Current Meds in Medical Chart: Patient's medications documented in chart Measure #226: Tobacco Use: Screen & Cessation Intervention: Pt not a tobacco user Measure #111: Pneumonia Vaccination: Pneumococcal vaccine NOT administered or previously given Measure #47: Advance Care Plan: Advance care planning discussed & documented, pt chose/unable to give Measure #412: Opioid Treatment Agreement: No documentation of signed opioid treatment agreement Measure #408: Opioid Therapy Follow-up Evaluation: Patient had NO f/u eval minimum every 3 months during opioid therapy Measure #317: Preventitive Care & Scrn High Bld Press & F/U: Pre-hypertensive or hypertensive BP documented, pt will f/u with PCP Measure #128: Body Mass Index (BMI) Screening & Follow-up: BMI documented within normal parameters Measure #131: Pain Assessment & Follow-up: Pain positive & plan documented, Follow-up scheduled Measure #431: Unhealthy Alcohol Use Preventative Care & Scrn: Patient not identified as an unhealthy alcohol user PQRS Narrative: Smoking Status Former smoker Blood Pressure 170/100 Pain Intensity [Neck] 6 Pain Intensity [Lower Back] 6 Scale Used Numeric (1 - 10) Hx Alcohol Use (MH) Yes: DAILY Home Medications: Ambulatory Orders ALPRAZolam [Xanax] 0.5 mg PO BID PRN 10/21/17 HYDROcodone/APAP 7.5-325MG [[place] 7.5-325] 1 tab PO Q4-6H PRN 08/17/19 amLODIPine [Norvasc] 2.5 mg PO DAILY 09/22/19 traMADol HCL [Ultram] 50 - 100 mg PO Q6HR PRN 09/22/19 Omeprazole 20 mg PO DAILY 10/18/19 Controlled Substance Measures - Controlled Substance Measures Is patient prescribed a controlled substance at discharge?: No
== END | disposition home or self-care (01) ==
LOC: PNWHC3 09:11
PROVIDERS: ATTEND Specialist
DX: M50.10 Cervical disc disorder with radiculopathy, unspecified cervical region (principal); M79.18 Myalgia, other site; M47.26 Other spondylosis with radiculopathy, lumbar region; M46.96 Unspecified inflammatory spondylopathy, lumbar region; M96.1 Postlaminectomy syndrome, not elsewhere classified; M51.16 Intervertebral disc disorders with radiculopathy, lumbar region; Z79.891 Long term (current) use of opiate analgesic; Z87.891 Personal history of nicotine dependence
CPT/HCPCS: 99211

== ENCOUNTER 2019-11-04 12:06 | Emergency (ER) | payer MEDICARE, BC ==
[2019-11-04 12:11] VITALS: RESP 18; TEMP 98.4
[2019-11-04] MEDS ORDERED: MORPHINE SULFATE 4 MG/ML SYRINGE IM STA (12:27)
--- NOTE | 2019-11-04 12:54 | XR ---
EXAMINATION TYPE: XR lumbar spine 3 views, XR sacrum coccyx, 3 views DATE OF EXAM: 11/04/2019 Comparison: Clinical History: 68-year-old male fall, pain Findings: Lumbar spine: Rightward tracheal shift. Laminectomy change in the lower lumbar spine. Hypertrophic facet arthropath y is present. Moderate degenerative disc disease throughout, more moderate to severe L2-L4 levels and also L5-S1. Degenerative grade 1 anterolisthesis L5-S1 and grade 1 retrolistheses at L1-L5 levels. V ertebral body heights are preserved. Sacrum and coccyx: SI joints appear symmetric and intact with mild degenerative change. Arcuate lines of the sacrum are normal with an continuous. There is slight posterior displacement suggested at the distal coccyx segm ents. Impression: 1. Lumbar spine: Moderate to advanced multilevel spondylotic change. Degenerative grade 1 spondylolis thesis from L1 through S1 levels. Rightward truncal shift could be positional or due to muscle spasm. No vertebral compression collapse. 2. Sacrum and coccyx: Slight posterior displacement suggested at the distal coccygeal segments. If fo roaxna pain here, subtle tailbone fracture not excluded.
[2019-11-04] MEDS ORDERED: ACET/COD 300 MG/30 MG STARTER PACK 6 TAB BTL PO STA (13:27)
[2019-11-04] MEDS ORDERED: HYDROcodone/APAP 5-325MG 1 EACH TAB PO STA (13:27)
--- NOTE | 2019-11-04 13:40 | ED ---
General Adult HPI - General Source: patient, RN notes reviewed, old records reviewed Mode of arrival: wheelchair Limitations: no limitations <Tim Caban - Last Filed: 11/04/19 13:37> <Rommel Thornton - Last Filed: 11/04/19 13:55> - General Chief complaint: Fall Stated complaint: fall/back pain Time Seen by Provider: 11/04/19 12:12 - History of Present Illness Initial comments: 68-year-old male patient is a history of a prior laminectomy and lumbar spine urgency for chief complaint mechanical fall. Patient reports that he was rubbing a cream on his leg when he lost his balance and fell directly on his gluteal region. Patient was sees having some low back and coccyx pain. Denies any paresthesias either loss of bowel or bladder control denies any trauma to his head or neck or any use of blood thinners. Systemic: Pt denies fatigue, fever/chills, rash. Pt denies weakness, night sweats, weight loss. Neuro: Pt denies headache, visual disturbances, syncope or pre-syncope. HEENT: Pt denies ocular discharge or irritation, otalgia, rhinorrhea, pharyngitis or notable lymphadenopathy. Cardiopulmonary: Pt denies chest pain, SOB, heart palpitations, dyspnea on exertion. Abdominal/GI: Pt denies abdominal pain, n/v/d. : Pt denies dysuria, burning w/ urination, frequency/urgency. Denies new onset urinary or bowel incontinence. MSK: Pt denies myalgia, loss of strength or function in extremities. Neuro: Pt denies new onset weakness, paresthesias. (Tim Caban) - Related Data Home Medications Medication Instructions Recorded Confirmed ALPRAZolam [Xanax] 0.5 mg PO BID PRN 10/21/17 11/02/19 HYDROcodone/APAP 7.5-325MG [[place] 1 tab PO Q4-6H PRN 08/17/19 11/02/19 7.5-325] amLODIPine [Norvasc] 5 mg PO DAILY 09/22/19 11/02/19 traMADol HCL [Ultram] 50 - 100 mg PO Q6HR PRN 09/22/19 11/02/19 Omeprazole 20 mg PO DAILY 10/18/19 11/02/19 Allergies Allergy/AdvReac Type Severity Reaction Status Date / Time No Known Allergies Allergy Verified 11/04/19 12:11 Review of Systems ROS Other: All systems not noted in ROS Statement are negative. <Tim Caban - Last Filed: 11/04/19 13:37> ROS Other: All systems not noted in ROS Statement are negative. <Rommel Thornton - Last Filed: 11/04/19 13:55> ROS Statement: Those systems with pertinent positive or pertinent negative responses have been documented in the HPI. Past Medical History Past Medical History: Cancer, GERD/Reflux, Hyperlipidemia, Hypertension, Musculoskeletal Disorder, Osteoarthritis (OA) Additional Past Medical History / Comment(s): Hx skin cancer. Constipation, spinal stenosis. History of Any Multi-Drug Resistant Organisms: None Reported Past Surgical History: Back Surgery, Bladder Surgery, Hernia Repair, Orthopedic Surgery, Prostate Surgery, Tonsillectomy Additional Past Surgical History / Comment(s): laminectomy x 3, spinal stimulator implant and removal, rt fx hip, bilateral knee arthroscopy, TURP, PAIN CLINIC PROCEDURE. Past Anesthesia/Blood Transfusion Reactions: Previous Problems w/ Anesthesia Additional Past Anesthesia/Blood Transfusion Reaction / Comment(s): "Problems co augusto out of anesthesia- 4-5 days, sometimes a weak feeling dizzy, unsteady". Past Psychological History: Anxiety, Depression Smoking Status: Former smoker Past Alcohol Use History: Occasional Past Drug Use History: Marijuana - Past Family History Mother Family Medical History: No Reported History <Tim Caban - Last Filed: 11/04/19 13:37> General Exam Limitations: no limitations <Tim Caban - Last Filed: 11/04/19 13:37> - General Exam Comments Initial Comments: Constitutional: NAD, AOX3, Pt has pleasant affect. HEENT: NC/AT, trachea midline, neck supple, no lymphadenopathy. External ears appear normal, without discharge. Mucous membranes moist. EOM intact. There is no scleral icterus. No pallor noted. Cardiopulmonary: RRR, no murmurs, rubs or gallops, no JVD noted. Lungs CTAB in anterior and posterior whitney. No peripheral edema. Abdominal exam: Abdomen soft and non-distended. Abdomen non-tender to palpation in all 4 quadrants. Bowel sounds active in LLQ. No hepatosplenomegaly. No ecchymosis Neuro: CN II-XII grossly intact. No nuchal rigidity. No raccon eyes, no barahona sign, No cervical spinal tenderness. MSK: Paralumbar region and coccyx region is mildly tender to palpation. No skin changes. Distal strength and sensation is intact. Sensation intact in upper and lower extremities. Full active ROM in upper and lower extremities, 5/5 stregnth. (Tim Caban) Course <Rommel Thornton - Last Filed: 11/04/19 13:55> Vital Signs 11/04/19 12:07 Temperature 98.4 F Pulse Rate 119 H Respiratory 18 Rate Blood Pressure 155/107 O2 Sat by Pulse 97 Oximetry - Reevaluation(s) Reevaluation #1: 11/04/19 13:54 PA supervision: I personally evaluate this case patient sustained a fall. Coccyx pain. X-rays were reviewed there is evidence of a minimally displaced coccyx fracture. Patient will be discharged with follow-up outpatient. I do agree with the assessment and plan. (Rommel Thornton) Medical Decision Making <Tim Caban - Last Filed: 11/04/19 13:37> - Medical Decision Making 68-year-old male patient presents to ED for chief complaint mechanical fall from standing landing on his gluteal region having some pain. This occured yesterday. Plain film does display moderate to advanced spondylolytic changes. Slight posterior displacement distal costal segment. Patient's symptoms are well controlled in ED. Patient discharged will follow-up with his orthopedic surgeon sit on a donut and return to ER if any worsening symptoms. Case discussed with Dr. Thornton. (Tim Caban) Disposition Is patient prescribed a controlled substance at d/c from ED?: No <Tim Caban - Last Filed: 11/04/19 13:37> <Rommel Thornton - Last Filed: 11/04/19 13:55> Clinical Impression: Fall, Fractured coccyx, Lumbar pain Disposition: HOME SELF-CARE Condition: Stable Instructions (If sedation given, give patient instructions): Coccyx Injury (ED), Acute Low Back Pain (ED) Additional Instructions: Follow up with PCP and orthopedic surgeon in 1-2 days. Take pain medication as needed. Return to ER with any worsening symptoms. I do recommend sitting on a donut. Referrals: García Baires MD [Primary Care Provider] - 1-2 days Kimmie Velásquez DO [Doctor of Osteopathic Medicine] - 1-2 days
[2019-11-04] MEDS ORDERED: hydrALAZINE HCL 20 MG/ML 1 ML VIAL IM STA (14:36)
[2019-11-04 15:18] VITALS: BP 172/104
[2019-11-04 15:23] VITALS: PULSE 75
== END 2019-11-04 15:23 | disposition home or self-care (01) ==
LOC: EC 12:06
DX: S32.2XXA Fracture of coccyx, initial encounter for closed fracture (principal); M54.5 Low back pain; K21.9 Gastro-esophageal reflux disease without esophagitis; F41.9 Anxiety disorder, unspecified; F32.9 Major depressive disorder, single episode, unspecified; I10 Essential (primary) hypertension; Z79.899 Other long term (current) drug therapy; Z85.828 Personal history of other malignant neoplasm of skin; Z98.890 Other specified postprocedural states; Z87.891 Personal history of nicotine dependence; W18.30XA Fall on same level, unspecified, initial encounter
CPT/HCPCS: 72100; 72220; 99284; 96372 ×2; J2270; J0360

== ENCOUNTER 2019-11-07 10:53 | Day surgery (SDC) | payer MEDICARE, BC ==
[2019-11-02 09:52] VITALS: BMI 23.7
[2019-11-07 11:13] VITALS: TEMP 97.7
[2019-11-07] MEDS ORDERED: LIDOCAINE 1% (10MG/ML) FOR IV START INTRADERMA ONE (11:29)
[2019-11-07] MEDS ORDERED: MIDAZOLAM 2 MG/2 ML VIAL ONE (11:51)
[2019-11-07] MEDS ORDERED: fentaNYL (PF) 50 MCG/ML 2 ML AMP ONE (11:51)
[2019-11-07] MEDS ORDERED: ROPIVACAINE 5MG/ML 20ML VIAL ONE (11:51)
[2019-11-07] MEDS ORDERED: IOPAMIDOL M200 10 ML VIAL ONE (11:51)
[2019-11-07] MEDS ORDERED: SODIUM CHLORIDE 0.9% (PF) 10 ML VIAL ONE (11:51)
[2019-11-07] MEDS ORDERED: methylPREDNISolone ACETATE 40 MG/ML 1 ML VIAL ONE (11:51)
--- NOTE | 2019-11-07 12:11 | P.PCN ---
Date of Procedure: 11/07/19 Procedure(s) Performed: PREOP DIAGNOSIS: 1- Lumbar postlaminectomy syndrome. 2-lumbar spondylosis with lumbar facet arthropathy with a seat POSTOP DIAGNOSIS:1- Lumbar postlaminectomy syndrome. 2-lumbar spondylosis with lumbar facet arthropathy without myelopathy PROCEDURE: 1-Caudal epidural steroid injection with epidurolysis and epidurogram under fluoroscopic guidance. (Fluoroscopy images available in the radiology Department ) 2-caudal epidurogram. ANESTHESIA: Local with 1% lidocaine 3 ml ,and moderate sedation, with Versed 2 mg and fentanyl 50 g. EBL: Minimal. PROCEDURE INDICATION: The patient with post-laminectomy syndrome with low back pain and radiculopathy radiating down in both legs, here for a caudal epidural steroid injection with epidurolysis. PROCEDURE DESCRIPTION: The patient was seen and identified in the preoperative area. Risks, benefits, complications, and alternatives were discussed with the patient. The patient agreed to proceed with the procedure and signed the consent. IV was started, and vital signs were stable. Patient was taken to the OR and time out was completed. The patient was placed in the prone position on procedure table and a pillow was placed under the abdomen to reduce lumbar lordosis. The lumbosacral area was prepped and draped in the usual sterile fashion. Vital signs were closely monitored during the procedure. lateral view and the anterior-posterior plates of the sacrum were identified with infiltration of the area overlying the sacral hiatus with 1% lidocaine .A 17 gauge RK epidural needle was used to advance through the sacral hiatus into the caudal epidural space. Omnipaque 180 dye. 2cc was injected and the position of the needle was verified to be in the midline. A Racz catheter was introduced into the epidural space and was advanced towards the L5-S1 interspace under direct fluoroscopic guidance. Multiple passes were made with the catheter for lysis of epidural adhesions. Depo-Medrol 40 mg with 3ml of preservative free Lidocaine 1% and 5 ml of preservative free normal saline was injected slowly. Additional spread was seen to L4 under fluoroscopy. The needle and the catheter were withdrawn intact. EPIDUROGRAM: Omnipaque 180 mg dye 2 ml was injected with spread of the dye into the caudal epidural space and with spread cutoff at L5 prior to epidurolysis. Post epidurolysis dye 2 ml was injected and spread was seen to L3-4.There was further spread of the solution together with the dye above the L3 COMPLICATIONS: None. DISPOSITION / PLANS: The patient was placed in a supine position and transferred to the recovery area in a stable condition for observation and was discharged from the recovery room after meeting discharge criteria. Home discharge instructions given to the patient by the staff. The patient was reexamined prior to discharge. The patient will schedule a follow up in the clinic in 2-4 weeks.
[2019-11-07] MEDS ORDERED: LACTATED RINGERS 1,000 ML IV ONE ×3 (12:14)
[2019-11-07 12:21] VITALS: BP 118/84; PULSE 107; RESP 16
--- NOTE | 2019-11-07 12:25 | FL ---
EXAMINATION TYPE: FL guided pain mgmt statistic DATE OF EXAM: 11/07/2019 CLINICAL HISTORY: Low back and sacral pain. TECHNIQUE: Fluoroscopy. COMPARISON: None. FINDINGS: Fluoroscopic guidance was provided during pain relief procedure performed by Dr. Bhatt . A total of 10 seconds of fluoroscopic time was utilized during the procedure and two spot images a re acquired. Images acquired shows needle localization near L5 and lower sacral levels. IMPRESSION: As Above.
== END 2019-11-07 12:54 | disposition home or self-care (01) ==
LOC: ORPAIN 10:53
PROVIDERS: ATTEND Specialist
DX: M96.1 Postlaminectomy syndrome, not elsewhere classified (principal); M47.26 Other spondylosis with radiculopathy, lumbar region
CPT/HCPCS: 62264; J2250; J1030; J3010; J2795; C1894; 99152

== ENCOUNTER 2019-11-09 07:51 | Emergency (ER) | payer MEDICARE, BC ==
[2019-11-09 07:57] VITALS: RESP 17; TEMP 98.7
[2019-11-09] MEDS ORDERED: HYDROcodone/APAP 5-325MG 1 EACH TAB PO STA (08:19)
--- NOTE | 2019-11-09 08:27 | ED ---
General Adult HPI - General Chief complaint: Back Pain/Injury Stated complaint: Revisit- Fall Coccyx injury Time Seen by Provider: 11/09/19 07:59 Source: patient, RN notes reviewed, old records reviewed Mode of arrival: wheelchair Limitations: no limitations - History of Present Illness Initial comments: 68-year-old male patient who had a mild coccyx fracture 4 days ago after mechanical fall presents to ED. Pt complains of continued pain in the coccyx region as well as pain in both hips. Denies any paresthesias, loss of bowel or bladder control, lower extremity weakness. Denies any other acute complaints. Systemic: Pt denies fatigue, fever/chills, rash. Pt denies weakness, night sweats, weight loss. Neuro: Pt denies headache, visual disturbances, syncope or pre-syncope. HEENT: Pt denies ocular discharge or irritation, otalgia, rhinorrhea, pharyngitis or notable lymphadenopathy. Cardiopulmonary: Pt denies chest pain, SOB, heart palpitations, dyspnea on exertion. Abdominal/GI: Pt denies abdominal pain, n/v/d. : Pt denies dysuria, burning w/ urination, frequency/urgency. Denies new onset urinary or bowel incontinence. MSK: Pt denies myalgia, loss of strength or function in extremities. Neuro: Pt denies new onset weakness, paresthesias. - Related Data Home Medications Medication Instructions Recorded Confirmed ALPRAZolam [Xanax] 0.5 mg PO BID PRN 10/21/17 11/02/19 HYDROcodone/APAP 7.5-325MG [[place] 1 tab PO Q4-6H PRN 08/17/19 11/02/19 7.5-325] amLODIPine [Norvasc] 5 mg PO DAILY 09/22/19 11/02/19 traMADol HCL [Ultram] 50 - 100 mg PO Q6HR PRN 09/22/19 11/02/19 Omeprazole 20 mg PO DAILY 10/18/19 11/02/19 Previous Rx's Medication Instructions Recorded Hydrocodone/Acetaminophen [[place] 1 each PO Q6HR PRN 3 Days #12 tab 11/09/19 5-325] Allergies Allergy/AdvReac Type Severity Reaction Status Date / Time No Known Allergies Allergy Verified 11/04/19 12:11 Review of Systems ROS Statement: Those systems with pertinent positive or pertinent negative responses have been documented in the HPI. ROS Other: All systems not noted in ROS Statement are negative. Past Medical History Past Medical History: Cancer, GERD/Reflux, Hyperlipidemia, Hypertension, Musculoskeletal Disorder, Osteoarthritis (OA) Additional Past Medical History / Comment(s): Hx skin cancer. Constipation, spinal stenosis. History of Any Multi-Drug Resistant Organisms: None Reported Past Surgical History: Back Surgery, Bladder Surgery, Hernia Repair, Orthopedic Surgery, Prostate Surgery, Tonsillectomy Additional Past Surgical History / Comment(s): laminectomy x 3, spinal stimulator implant and removal, rt fx hip, bilateral knee arthroscopy, TURP, PAIN CLINIC PROCEDURE. Past Anesthesia/Blood Transfusion Reactions: Previous Problems w/ Anesthesia Additional Past Anesthesia/Blood Transfusion Reaction / Comment(s): "Problems coming out of anesthesia- 4-5 days, sometimes a weak feeling dizzy, unsteady". Past Psychological History: Anxiety, Depression Smoking Status: Former smoker Past Alcohol Use History: Occasional Past Drug Use History: Marijuana - Past Family History Mother Family Medical History: No Reported History General Exam - General Exam Comments Initial Comments: Constitutional: NAD, AOX3, Pt has pleasant affect. HEENT: NC/AT, trachea midline, neck supple, no lymphadenopathy. External ears appear normal, without discharge. Mucous membranes moist. Eyes PERRLA, EOM intact. There is no scleral icterus. No pallor noted. Cardiopulmonary: RRR, no murmurs, rubs or gallops, no JVD noted. Lungs CTAB in anterior and posterior whitney. No peripheral edema. Abdominal exam: Abdomen soft and non-distended. Abdomen non-tender to palpation in all 4 quadrants. Bowel sounds active in LLQ. No hepatosplenomegaly. No ecchymosis Neuro: CN II-XII grossly intact. No nuchal rigidity. MSK: No posterior calf tenderness bilaterally, homans sign negative bilaterally. Posterior tibialis and radial pulse +2 bilaterally. Sensation intact in upper and lower extremities. Full active ROM in upper and lower extremities, 5/5 stregnth. Limitations: no limitations Course Vital Signs 11/09/19 07:52 Temperature 98.7 F Pulse Rate 106 H Respiratory 17 Rate Blood Pressure 150/100 O2 Sat by Pulse 97 Oximetry Medical Decision Making - Medical Decision Making 60-year-old male patient presents to ED for chief complaint of pain stemming from a coccyx fracture couple days ago. Patient vital signs are stable, afebrile. Physical exam displayed intact strength and sensation distally. Plain film have some slight acute process or fracture. Patient chief reason for presentation is pain control. States that he is only at, motor home. Patient will be discharged with 3 days of [place] will be instructed to follow-up with his primary care provider orthopedic consult of which she has not done yet. Will return if any worsening symptoms. Case discussed with Dr. Retana. Disposition Clinical Impression: Coccyx pain, Hip pain Disposition: HOME SELF-CARE Condition: Stable Instructions (If sedation given, give patient instructions): Coccyx Injury (ED) Additional Instructions: follow-up with primary care provider as well as orthopedic consult. Return to ER with any worsening symptoms. Prescriptions: Hydrocodone/Acetaminophen [[place] 5-325] 1 each PO Q6HR PRN 3 Days #12 tab PRN Reason: Pain Is patient prescribed a controlled substance at d/c from ED?: Yes When asked, does pt state using other controlled substances?: No If prescribed controlled substance>3 days was MAPS reviewed?: Prescribed <3 Days If opioid is for acute pain is fill amount 7 days or less?: Yes If Rx opioid, was Start Talking consent form obtained?: Yes Referrals: García Baires MD [Primary Care Provider] - 1-2 days Kimmie Velásquez DO [Doctor of Osteopathic Medicine] - 1-2 days
--- NOTE | 2019-11-09 09:08 | XR ---
EXAMINATION TYPE: XR Hip Bilateral and AP pelvis DATE OF EXAM: 11/09/2019 CLINICAL HISTORY: Pelvic and bilateral hips TECHNIQUE: A single AP view of the pelvis is obtained. Two views of the bilateral hip are obtained. COMPARISON: None. FINDINGS: There is no acute fracture/dislocation evident in the pelvis. The hip and sacroiliac joints appear s ymmetric .The overlying soft tissue appears unremarkable. Postoperative changes right hip. No fractur e or lesions seen bilaterally. Mild degenerative joint space narrowing. IMPRESSION: There is no acute fracture or dislocation.
[2019-11-09 09:41] VITALS: BP 132/84; PULSE 90
== END 2019-11-09 09:41 | disposition home or self-care (01) ==
LOC: EC 07:51
DX: M53.3 Sacrococcygeal disorders, not elsewhere classified (principal); M25.551 Pain in right hip; M25.552 Pain in left hip; F41.9 Anxiety disorder, unspecified; I10 Essential (primary) hypertension; K21.9 Gastro-esophageal reflux disease without esophagitis; F32.9 Major depressive disorder, single episode, unspecified; Z79.899 Other long term (current) drug therapy; Z85.828 Personal history of other malignant neoplasm of skin; Z87.891 Personal history of nicotine dependence; W18.30XA Fall on same level, unspecified, initial encounter
CPT/HCPCS: 73521; 99284

== ENCOUNTER 2019-12-05 09:50 | Day surgery (SDC) | payer MEDICARE, BC ==
[2019-11-30 15:42] VITALS: BMI 23.7
[2019-12-05 13:49] VITALS: RESP 16; TEMP 97.1
[2019-12-05] MEDS ORDERED: fentaNYL (PF) 50 MCG/ML 2 ML AMP ONE (14:13)
[2019-12-05] MEDS ORDERED: methylPREDNISolone ACETATE 40 MG/ML 1 ML VIAL ONE (14:13)
[2019-12-05] MEDS ORDERED: MIDAZOLAM 2 MG/2 ML VIAL ONE (14:13)
[2019-12-05] MEDS ORDERED: ROPIVACAINE 5MG/ML 20ML VIAL ONE (14:13)
[2019-12-05] MEDS ORDERED: IV FLUID CONTINUATION 800 ML IV ONE (14:31)
--- NOTE | 2019-12-05 14:34 | P.PCN ---
Date of Procedure: 12/05/19 Procedure(s) Performed: Procedure= Right sacroiliac joints steroid injection under fluoroscopy guidance (fluoroscopy image stored on file in the radiology Department ) Preoperative diagnosis= 1-sacroiliitis 2-failed back surgery syndrome lumbar area 3-lumbar spondylosis with facet arthropathy Postoperative diagnosis=Same as preop Diagnosis . Complication = none Condition= stable Anesthesia= moderate sedation with intravenous Versed 2 mg , and fentanyl 100 micrograms . Indication for the procedure= patient complaining of low back pain , examination was positive for severe tenderness over the sacroiliac joints bilaterally and patient diagnosed with sacroiliitis, for this reason ,he was good candidate for sacroiliac joint steroid injection. Description of the procedure= procedure risk and benefits discussed with the patient, including but not limited, risk of infection and bleeding, and ALLERGIC reaction to the medication and not complete pain relief and patient agreed with the preceding patient taken to the operating room, placed in prone position or standard monitors applied to the patient then after induction of anesthesia back prepped with chlorhexidine 3 times , Then under strict sterile technique, first I did the right sacroiliac joint the which was identified under fluoroscopy guidance been local infiltration of the skin and subcu interstitial with lidocaine 1% then 22-gauge Qu[place]ke Needle advanced slowly under fluoroscopy and placed in the right sacroiliac joint needle placement confirmed with AP and oblique and lateral view and after appropriate needle placement confirmed and after negative aspiration, or heme , then Ropivacaine 0.5% 3 mL, and 40 mg of Depo-Medrol mixed together and injected in the right sacroiliac joint after negative aspiration patient tolerated the procedure well without any complication.
--- NOTE | 2019-12-05 14:40 | FL ---
EXAMINATION TYPE: FL guided pain mgmt statistic DATE OF EXAM: 12/05/2019 CLINICAL HISTORY: Right sacroiliac joint pain. TECHNIQUE: Fluoroscopy. COMPARISON: None. FINDINGS: Fluoroscopic guidance was provided during pain relief procedure performed by Dr. Bhatt . A total of 6 seconds of fluoroscopic time was utilized during the procedure and two spot images ar e acquired. Images acquired shows needle localization at 2 levels of the right sacroiliac joint. IMPRESSION: As Above.
[2019-12-05 14:52] VITALS: BP 146/92; PULSE 101
== END 2019-12-05 15:05 | disposition home or self-care (01) ==
LOC: ORPAIN 09:50
PROVIDERS: ATTEND Specialist
DX: M46.1 Sacroiliitis, not elsewhere classified (principal); M53.3 Sacrococcygeal disorders, not elsewhere classified; M96.1 Postlaminectomy syndrome, not elsewhere classified; M47.816 Spondylosis without myelopathy or radiculopathy, lumbar region
CPT/HCPCS: J2250; J1030; J3010; J2795; G0260; 27096; 99152

== ENCOUNTER 2019-12-21 12:36 | Day surgery (SDC) | payer MEDICARE, BC ==
[2019-12-19 11:48] VITALS: BMI 23.7
--- NOTE | 2019-12-21 13:53 | P.PN ---
Progress Note - Text Progress Note Date: 12/21/19 This is a 69 years old male, was scheduled to have a right sacroiliac joint steroid injections, in the preoperative holding area patient was very angry and combative, he reported that during the last procedure he was having severe pain during the procedure, and he said that he was very unhappy with my service, and he was yelling, and shouting at ME and the nurses staff, I explained to the patient that because of his attitude and behavior and cannot take care of him, and I cannot take care of him in the future, he will be discharged from the clinic.
== END 2019-12-21 13:57 ==
LOC: ORPAIN 12:36
PROVIDERS: ATTEND Specialist
DX: M54.5 Low back pain (principal); Z53.8 Procedure and treatment not carried out for other reasons